=== PATIENT | male | born 1990 | race Caucasian/White ===

== ENCOUNTER 2021-02-20 13:18 | Emergency (ER) | payer MEDICAID ==
[~2021-02-20] VITALS: Ht 172.7 cm; Wt 91.0 kg
[2021-02-20 13:38] VITALS: BP 125/78
== END 2021-02-20 16:19 | disposition home or self-care (01) ==
LOC: ER 13:18
DX: Z48.02 Encounter for removal of sutures (principal); H72.91 Unspecified perforation of tympanic membrane, right ear; Z87.828 Personal history of other (healed) physical injury and trauma
CPT/HCPCS: 99281; Z7610